=== PATIENT | female | born 1945 | race Caucasian/White ===

== ENCOUNTER 2017-07-26 10:48 | Emergency (ER) | payer MEDICARE, OTHER ==
--- NOTE | 2017-07-26 11:10 | ERPHSYRPT ---
- History of Present Illness Time Seen by Provider: 07/26/17 11:05 Source: patient Exam Limitations: no limitations Patient Subjective Stated Complaint: pt reports she fell out of bed onto left shoulder last night-reports pain with movement Triage Nursing Assessment: pt pink warm and dry-denies other injury-radial pulse regualr and strong-sore rom reported Physician History: The patient is a 71-year-old female complaining that she accidentally rolled out of bed last night onto her left shoulder causing severe bruising and pain. Yesterday she had some teeth pulled and was tired after the procedure. She took only Tylenol for pain medicine. She did not lose consciousness or hit her head when she rolled out of bed. She is right-handed. Her past medical history is significant for gout, A-fib, stroke, and hypertension. Occurred: yesterday Reason for Fall: lost balance, fell from height Injuries/Pain Location: upper extremity (left shoulder) Loss of Consciousness: no loss of consciousness Quality: sharpness Severity of Pain-Max: moderate Severity of Pain-Current: moderate Modifying Factors: Improves With: nothing Associated Symptoms (Fall): extremity injury Allergies/Adverse Reactions: No Known Drug Allergies Allergy (Unverified 07/26/17 11:00) Home Medications: Allopurinol [Allopurinol] 100 mg PO DAILY 07/26/17 [History] Clopidogrel Bisulfate [Clopidogrel] 75 mg PO DAILY 07/26/17 [History] Lisinopril [Lisinopril] 10 mg PO DAILY 07/26/17 [History] Hx Tetanus, Diphtheria Vaccination/Date Given: No Hx Influenza Vaccination/Date Given: No Hx Pneumococcal Vaccination/Date Given: No Immunizations Up to Date: Yes - Review of Systems Constitutional: No Fever, No Chills Eyes: No Symptoms Ears, Nose, & Throat: No Symptoms Respiratory: No Cough, No Dyspnea Cardiac: No Chest Pain, No Edema, No Syncope Abdominal/Gastrointestinal: No Abdominal Pain, No Nausea, No Vomiting, No Diarrhea Genitourinary Symptoms: No Dysuria Musculoskeletal: Fall, Injury, Joint Pain, Joint Swelling Skin: No Rash Neurological: No Dizziness, No Focal Weakness, No Sensory Changes Psychological: No Symptoms Endocrine: No Symptoms Hematologic/Lymphatic: No Symptoms Immunological/Allergic: No Symptoms All Other Systems: Reviewed and Negative - Past Medical History Pertinent Past Medical History: Yes Neurological History: Stroke Cardiac History: Hypertension - Past Surgical History Past Surgical History: Yes - Social History Smoking Status: Never smoker Exposure to second hand smoke: No Drug Use: none Patient Lives Alone: No - Female History Hx Now: No - Nursing Vital Signs Nursing Vital Signs: Initial Vital Signs Temperature 98.7 F 07/26/17 11:03 Pulse Rate 110 H 07/26/17 11:03 Respiratory Rate 18 07/26/17 11:03 Blood Pressure 160/92 07/26/17 11:03 O2 Sat by Pulse Oximetry 97 07/26/17 11:03 Pain Scale Pain Intensity 8 - Ann-Marie Coma Score Best Eye Response ([place]): (4) open spontaneously Best Verbal Response ([place]): (5) oriented Best Motor Response ([place]): (6) obeys commands Ann-Marie Total: 15 - Physical Exam General Appearance: mild distress Head Injury: no evidence of injury Eye Exam: PERRL/EOMI ENT Exam: airway nml Neck Exam: normal inspection, No tenderness Respiratory/Chest Exam: normal breath sounds, No chest tenderness, No respiratory distress Cardiovascular Exam: normal heart sounds, regular rate/rhythm Gastrointestinal Exam: soft, No tenderness, No distention, No guarding, No ecchymosis Rectal Exam: not done Back Exam: normal inspection, No vertebral tenderness Extremity Exam: joint swelling, limited range of motion, evidence of injury, pain with movement, tenderness, other (significant bruising and decreased ROM of left shoulder. crepitance of left clavicle) Neurologic Exam: alert, oriented x 3, cooperative, sensation nml, No motor deficits Skin Exam: normal color, warm, dry SpO2 Interpretation: normal SpO2: 97 Oxygen Delivery: Room Air - Radiology Exams Left Clavicle X-ray Interpretation: Reviewed by , Teleradiologist Report, Displaced Fracture (distal shaft fracture with bayonet appostion/alignment per Dr Baker.) Left Shoulder X-ray Interpretation: Reviewed by , Teleradiologist Report, Displaced Fracture (distal clavicle fracture per Dr Baker.) Ordered Tests: Active Orders 24 hr Category Date Time Status CLAVICLE Stat Exams 07/26/17 11:13 Completed SHOULDER Stat Exams 07/26/17 11:13 Completed - Progress Progress: unchanged Counseled pt/family regarding: lab results, diagnosis, need for follow-up - Departure Time of Disposition: 12:04 Departure Disposition: Transfer ([facility] per Dr Hampton and Dr Moe.) Clinical Impression: Closed left clavicular fracture Condition: Stable Critical Care Time: No Referrals: JACQUIE HINOJOSA [Primary Care Provider] - Additional Instructions: You have a severe left clavicle fracture with a sharp piece of bone pushing against your skin. You will be transferred to [facility] ER for further evaluation and care. Pt to be transferred by private car. Pt's neighbor will provide transportation to [facility] to see Dr Hampton and Dr Moe.
--- NOTE | 2017-07-26 11:42 | XRAY ---
Indication: Pain following fall. Comparison: None 2 views of the left clavicle demonstrates distal clavicle shaft fracture with bayonet apposition/alignment and soft tissue swelling. No other bony, articular, or soft tissue abnormalities.
--- NOTE | 2017-07-26 11:47 | XRAY ---
Indication: Pain following fall. Comparison: None 3 views of the left shoulder demonstrates distal clavicle shaft fracture with bayonet apposition/alignment and soft tissue swelling. No other bony, articular, or soft tissue abnormalities.
[2017-07-26 13:13] VITALS: BP 131/88; PULSE 88; O2SAT 99
== END 2017-07-26 13:09 | disposition short-term general hospital (02) ==
LOC: ED 10:48
DX: S42.032A Displaced fracture of lateral end of left clavicle, initial encounter for closed fracture (principal); Z79.899 Other long term (current) drug therapy; W06.XXXA Fall from bed, initial encounter
CPT/HCPCS: 73000; 73030; 99284; 99285; L0120

== ENCOUNTER 2018-03-08 16:18 | Observation (INO) | payer MEDICARE, OTHER ==
--- NOTE | 2018-03-08 16:52 | ERPHSYRPT ---
- History of Present Illness Time Seen by Provider: 03/08/18 16:46 Source: patient Exam Limitations: no limitations Patient Subjective Stated Complaint: PT states "About two hours ago I think I had a TIA. I couldn't speak, my face started to droop and I was drooling. I took an aspirin and about 20 minutes after that it got better." Triage Nursing Assessment: Pt alert and oriented X 3, skin pwd. PT ambulates with an upright steady gait, able to speak in clear full sentences. PT in no respiratory distress at this time, CSM X 4, equal strength bilat. 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 She states that yesterday she had some left-handed weakness then today the above symptoms. She feels like she has recovered fully she is not having any problems moving any of her extremities today she did state she felt a little weak in her left arm earlier. Past medical history includes CVA 21 hemorrhagic 1 thromboembolic, patient also with history of TIA also history of atrial fibrillation and high blood pressure patient's old chart shows a history of gout however patient disputes this Past surgical history includes a left carotid endarterectomy and left clavicle surgery. Social history patient denies tobacco alcohol or illicit drug use. 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: today (2 hours ago) Severity: moderate Modifying Factors: Improves With: other (patient took 325 mg aspirin shortly after symptoms began) Associated Symptoms: other (left facial droop slurry speech, left arm weakness all resolved), No nausea, No vomiting, No abdominal pain, No shortness of breath , No heartburn, No diaphoresis, No cough, No chills, No chest pain, No fever, No headaches, No loss of appetite, No malaise, No rash, No syncope, No seizure, No weakness Allergies/Adverse Reactions: No Known Drug Allergies Allergy (Verified 03/08/18 16:40) Home Medications: Clopidogrel Bisulfate [Clopidogrel] 75 mg PO DAILY 07/26/17 [History] Hx Tetanus, Diphtheria Vaccination/Date Given: No Hx Influenza Vaccination/Date Given: No Hx Pneumococcal Vaccination/Date Given: No Immunizations Up to Date: Yes - Review of Systems Constitutional: No Fever, No Chills Eyes: No Symptoms Ears, Nose, & Throat: No Symptoms Respiratory: No Cough, No Dyspnea Cardiac: No Chest Pain, No Edema, No Syncope Abdominal/Gastrointestinal: No Abdominal Pain, No Nausea, No Vomiting, No Diarrhea Genitourinary Symptoms: No Dysuria Musculoskeletal: Other (left upper extremity weakness), No Back Pain, No Neck Pain Skin: No Rash Neurological: Focal Weakness (left facial droop left arm weakness resolved), Speech Changes (slurry speech resolved), No Dizziness, No Gait Changes, No Headache, No Irritability, No Lethargy, No Paralysis, No Parasthesia, No Seizure , No Sensory Changes, No Tics, No Tremors, No Vertigo Psychological: No Symptoms Endocrine: No Symptoms All Other Systems: Reviewed and Negative - Past Medical History Pertinent Past Medical History: Yes Neurological History: Stroke, TIA Cardiac History: Arrhythmia, Hypertension Respiratory History: No Pertinent History Endocrine Medical History: No Pertinent History Musculoskeletal History: Fractures, Osteoporosis - Past Surgical History Past Surgical History: Yes Neuro Surgical History: Other (CVA 2: 1 hemorrhagic 1 thromboembolic, tia) Other Surgical History: carotid entorectomy left side - Social History Smoking Status: Former smoker Exposure to second hand smoke: No Drug Use: none Patient Lives Alone: No - Female History Hx Now: No - Nursing Vital Signs Nursing Vital Signs: Initial Vital Signs Temperature 98.0 F 03/08/18 16:30 Pulse Rate 99 H 03/08/18 16:30 Respiratory Rate 16 03/08/18 16:30 Blood Pressure 205/117 03/08/18 16:30 O2 Sat by Pulse Oximetry 94 L 03/08/18 16:30 Pain Scale Pain Intensity 0 - Physical Exam General Appearance: no apparent distress, alert, other (well-developed well- nourished white female, alert, oriented 3, pleasant and cooperative to examination) Eye Exam: PERRL/EOMI, eyes nml inspection, other (Fundi are unremarkable) Ears, Nose, Throat Exam: normal ENT inspection, TMs normal, pharynx normal, moist mucous membranes Neck Exam: normal inspection, non-tender, supple, full range of motion Respiratory Exam: normal breath sounds, lungs clear, No respiratory distress Cardiovascular Exam: regular rate/rhythm, normal heart sounds, normal peripheral pulses Gastrointestinal/Abdomen Exam: soft, normal bowel sounds, No tenderness, No mass Back Exam: normal inspection, normal range of motion, No CVA tenderness, No vertebral tenderness Extremity Exam: normal inspection, normal range of motion, pelvis stable Neurologic Exam: alert, oriented x 3, cooperative, vehicle and equipment cleaner II-XII nml as tested, normal mood/affect, nml cerebellar function, nml station & gait, sensation nml, other (patient is alert, oriented 3, cranial nerves II though XII intact, speech normal, no facial droop, no tongue deviation, sales enablement specialist equal and symmetrical 5/5, normal finger to nose, no pronator drift, full range of motion all extremities, sensation intact to all extremities, GCS equals 15), No motor deficits, No sensory deficit, No disoriented, No confusion Skin Exam: normal color, warm, dry, No rash SpO2 Interpretation: normal (94%) SpO2: 94 Oxygen Delivery: Room Air - Course Nursing assessment & vital signs reviewed: Yes EKG Interpreted by Me: RATE (78 bpm), NORMAL AXIS, Other (EKG: Sinus Arrhythmia , 78 bpm, normal axis, no acute ST or T wave changes noted.) - CT Exams Head CT Interpretation: Discussed w/radiologist (head CT: Impression: Nonacute senile brain.) Ordered Tests: Active Orders 24 hr Category Date Time Status Accucheck STAT Care 03/08/18 16:45 Active Ingredient Specialist STAT Care 03/08/18 16:45 Active EKG-ER Only STAT Care 03/08/18 16:45 Active IV Insertion STAT Care 03/08/18 16:45 Active Pulse Oximetry (ED) STAT Care 03/08/18 16:45 Active HEAD WITHOUT CONTRAST [CT] Stat Exams 03/08/18 16:45 Completed CBC W DIFF Stat Lab 03/08/18 17:45 Completed CMP Stat Lab 03/08/18 17:45 Completed PROTIME WITH INR Stat Lab 03/08/18 17:45 Completed PTT Stat Lab 03/08/18 17:45 Completed Lab/Rad Data: Laboratory Result Diagrams 03/08/18 17:45 03/08/18 17:45 Laboratory Results 03/08/18 03/08/18 03/08/18 Range/Units 17:45 17:45 17:45 WBC 5.9 (4.0-10.5) K/mm3 RBC 4.50 (4.1-5.4) M/mm3 Hgb 14.2 (12.0-16.0) gm/dl Hct 42.5 (35-47) % MCV 94.4 (78-100) fl MCH 31.6 (26-32) pg MCHC 33.4 (32-36) g/dl RDW 14.4 H (11.5-14.0) % Plt Count 210 (150-450) K/mm3 MPV 9.7 H (6-9.5) fl Gran % 65.7 (36.0-66.0) % Eos # (Auto) 0.05 (0-0.5) Absolute Lymphs (auto) 1.42 (1.0-4.6) Absolute Monos (auto) 0.53 (0.0-1.3) Lymphocytes % 24.2 (24.0-44.0) % Monocytes % 9.0 (0.0-12.0) % Eosinophils % 0.9 (0.00-5.0) % Basophils % 0.2 (0.0-0.4) % Absolute Granulocytes 3.86 (1.4-6.9) Basophils # 0.01 (0-0.4) PT 10.8 (9.95-12.35) SECONDS INR 0.93 (0.8-3.0) APTT 30.7 (25.3-37.0) SECONDS Sodium 136 L (137-145) mmol/L Potassium 4.1 (3.5-5.1) mmol/L Chloride 101 (98-107) mmol/L Carbon Dioxide 26 (22-30) mmol/L Anion Gap 13.4 (5-15) MEQ/L BUN 20 H (7-17) mg/dL Creatinine 1.28 H (0.52-1.04) mg/dL Estimated GFR 43.6 ML/MIN Glucose 91 (74-106) mg/dL Calcium 9.7 (8.4-10.2) mg/dL Total Bilirubin 1.10 (0.2-1.3) mg/dL AST 24 (14-36) U/L ALT 9 (0-35) U/L Alkaline Phosphatase 143 H (38-126) U/L Serum Total Protein 8.5 H (6.3-8.2) g/dL Albumin 4.4 (3.5-5.0) g/dL - Progress Progress: improved Progress Note: 03/08/18 17:14 72-year-old white female with history of hemorrhagic CVA and history of thromboembolic CVA as well as TIA. Arrives with complaint of left facial droop slurried speech and drooling and left-sided arm weakness symptoms approximately 2 hours prior to arrival lasted about 10-15 minutes resolved after taking aspirin 325 mg orally. Patient now with normal neurologic examination I've discussed the patient's case with Dr. Du it is not felt that to a neurology consult needs to be done in the emergency room patient has a normal neurologic examination we'll plan to place patient on observation telemetry neuro checks. Patient has already taken aspirin. Will await patient's labs. Anticipate placement on observation to telemetry with every 4 hours neuro checks.. 03/08/18 18:23 Patient continues to do well. Will place patient on observation telemetry with every 4 hours neuro checks. Diagnosis left-sided facial droop resolved. TIA versus CVA. - Departure Time of Disposition: 18:23 Departure Disposition: Observation Clinical Impression: left-sided facial droop Resolved, TIA versus CVA Condition: Fair Critical Care Time: No Referrals: LISETTE SIM [Primary Care Provider] -
--- NOTE | 2018-03-08 17:08 | XRAY ---
Indication: Slurred speech. Drooling. Possible stroke. Multiple contiguous axial images obtained through the head without contrast. Comparison: None Age-appropriate global atrophy and mild periventricular degenerative micro-ischemia bilaterally. No acute intracranial hemorrhage, abnormal extra-axial fluid collection, or mass effect. Fourth ventricle is midline without hydrocephalus. Bony calvarium intact. Visualized paranasal sinuses and mastoid air cells are clear. Impression: Nonacute senile brain. CT DI 70.38
[2018-03-08 17:48] LABS: BASOPHIL % 0.2 % (0.0-0.4); Basophil (Absolute #) 0.01 (0-0.4); Eosinophil % 0.9 % (0.00-5.0); Eosinophil (Absolute #) 0.05 (0-0.5); Granulocyte Absolute (ANC) 3.86 (1.4-6.9); Granulocytes % 65.7 % (36.0-66.0); Hematocrit 42.5 % (35-47); Hemoglobin 14.2 gm/dl (12.0-16.0); Lymphocyte (Absolute #) 1.42 (1.0-4.6); Lymphocytes % 24.2 % (24.0-44.0); Mean Cell Volume 94.4 fl (78-100); Mean Corpuscular Hemoglobin 31.6 pg (26-32); Mean Corpuscular Hgb Concent. 33.4 g/dl (32-36); Mean Platelet Volume 9.7 fl (6-9.5); Monocyte (Absolute #) 0.53 (0.0-1.3); Platelet Count 210 K/mm3 (150-450); Red Cell Distribution Width 14.4 % (11.5-14.0); White Blood Count 5.9 K/mm3 (4.0-10.5)
[2018-03-08 18:10] LABS: INR 0.93 (0.8-3.0)
[2018-03-08 18:13] LABS: PTT 30.7 SECONDS (25.3-37.0)
[2018-03-08 18:14] LABS: ALBUMIN 4.4 g/dL (3.5-5.0); ANION GAP 13.4 MEQ/L (5-15); BILIRUBIN,TOTAL 1.1 mg/dL (0.2-1.3); Calcium 9.7 mg/dL (8.4-10.2); Creatinine 1 1.28 mg/dL (0.52-1.04); Potassium 4.1 mmol/L (3.5-5.1); Total Protein 8.5 g/dL (6.3-8.2)
[2018-03-08] MEDS: PLAVIX 75 MG Tablet PO SCH (22:07)
[2018-03-09 05:44] LABS: BASOPHIL % 0.1 % (0.0-0.4); Basophil (Absolute #) 0.01 (0-0.4); Eosinophil % 0.9 % (0.00-5.0); Eosinophil (Absolute #) 0.08 (0-0.5); Granulocyte Absolute (ANC) 7.07 (1.4-6.9); Granulocytes % 83.4 % (36.0-66.0); Hemoglobin 13.2 gm/dl (12.0-16.0); Lymphocyte (Absolute #) 0.75 (1.0-4.6); Lymphocytes % 8.8 % (24.0-44.0); Mean Cell Volume 94.8 fl (78-100); Mean Corpuscular Hemoglobin 31.3 pg (26-32); Mean Platelet Volume 10.4 fl (6-9.5); Monocyte (Absolute #) 0.58 (0.0-1.3); Monocytes % 6.8 % (0.0-12.0); Platelet Count 205 K/mm3 (150-450); Red Blood Count 4.22 M/mm3 (4.1-5.4); Red Cell Distribution Width 14.7 % (11.5-14.0); White Blood Count 8.5 K/mm3 (4.0-10.5)
[2018-03-09 06:16] LABS: ALBUMIN 3.7 g/dL (3.5-5.0); ANION GAP 10.8 MEQ/L (5-15); BILIRUBIN,TOTAL 0.8 mg/dL (0.2-1.3); Calcium 9.4 mg/dL (8.4-10.2); Creatinine 1 1.27 mg/dL (0.52-1.04); Total Protein 7.4 g/dL (6.3-8.2)
--- NOTE | 2018-03-09 08:57 | XRAY ---
Indication: Slurred speech. Left-sided weakness. Multiple contiguous axial images obtained through the head without contrast. Comparison: One day earlier. Stable global atrophy and mild periventricular degenerative micro-ischemia. There is now subtle cortical/subcortical hypoattenuation in the right mid parietal lobe favoring evolving acute ischemia. No acute hemorrhage, mass effect, or hydrocephalus. Bony calvarium intact. Visualized paranasal sinuses and mastoid air cells are clear. Impression: 1. New evolving right parietal lobe acute ischemia without hemorrhage/mass effect. MRI exam is pending. 2. Stable atrophy and degenerative micro-ischemia. CTDI 70.80
--- NOTE | 2018-03-09 09:09 | XRAY ---
Indication: TIA symptoms. Left-sided weakness. History bleed March 2015. Sagittal, coronal, and axial MRI brain was performed without contrast using T1, T2, FLAIR, diffusion, and ADC sequences. Comparison: None Age-appropriate global atrophy and mild periventricular degenerative micro-ischemia signal bilaterally. Additional punctate degenerative micro-ischemia signal in the left subhash. Small focus of encephalomalacia in the left mid parietal and posterior right temporal lobes with surrounding gliosis from old injury/insult. Diffusion images demonstrates restricted signal centered around the right central sulcus favoring acute ischemia. No acute intracranial hemorrhage, mass effect, or hydrocephalus. 7/8 cranial nerve complex bilaterally symmetric. Normal flow-void signal within the major intracerebral circulation. Normal appearing craniocervical junction and sella turcica. Paranasal sinuses are clear. Impression: 1. Acute ischemia centered around the right central sulcus. No acute hemorrhage or mass effect. 2. Small focus of encephalomalacia and gliosis in the left parietal and right posterior temporal lobes from old injury/insult. 3. Aging brain including global atrophy and degenerative micro-ischemia.
--- NOTE | 2018-03-09 09:29 | PCM.HP ---
History of Present Illness - Chief Complaint Chief Complaint: TIA vs CVA History of Present Illness: is a 72 year old female who presented with acute onset of slurred speech and facial droop, she took an 81mg aspirin at home and her symptoms resolved within 5 minutes, however her insisted she come for evaluation. 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 Since that time she has been on lipitor 80mg daily and plavix 75mg daily. She has no history of GI bleed or problems with the plavix, has never been on aspirin and plavix concurrently. she had another brief episode of dysarthria and facial droop this morning which was witness by staff but rapidly dissipated, she is alert, oriented and has no complaints of visual changes, no headache, no difficulty with speech, no motor weakness or paresthesias at this time. - Review of Systems Constitutional: No Fever, No Chills Eyes: No Symptoms Respiratory: No Cough, No Short Of Breath Cardiac: No Chest Pain, No Edema, No Syncope Abdominal/Gastrointestinal: No Abdominal Pain, No Nausea, No Vomiting, No Diarrhea Musculoskeletal: No Back Pain, No Neck Pain Neurological: Speech Changes, No Focal Weakness, No Paralysis, No Seizure, No Vertigo Psychological: No Symptoms All Other Systems: Reviewed and Negative Medications & Allergies Home Medications: Home Medication List Clopidogrel Bisulfate [Clopidogrel] 75 mg PO DAILY 07/26/17 [History Confirmed 03/08/18] Allergies/Adverse Reactions: Allergies Allergy/AdvReac Type Severity Reaction Status Date / Time No Known Drug Allergies Allergy Verified 03/08/18 16:40 - Past Medical History Past Medical History: Yes Neurological History: Stroke, TIA ENT History: Cataracts Cardiac History: Arrhythmia Respiratory History: No Pertinent History Endocrine Medical History: No Pertinent History Musculoskelatal History: No Pertinent History GI Medical History: No Pertinent History History: No Pertinent History Pyscho-Social History: No Pertinent History Reproductive Disorders: No Pertinent History - Female History Are you now?: No - Past Surgical History Past Surgical History: Yes Neuro Surgical History: Other Cardiac History: Other Respiratory Surgery: No Pertinent History GI Surgical History: No Pertinent History Genitourinary Surgical Hx: No Pertinent History Musculskeletal Surgical Hx: No Pertinent History Female Surgical History: No Pertinent History Other Surgical History: carotid entorectomy left side-1987. rt side collar bone metal plate-2017 - Social History Smoking Status: Former smoker Exposure to second hand smoke: No Alcohol: Rarely Drug Use: none - Physical Exam Vital Signs: Vital Signs - 24 hr Temp Pulse Resp BP Pulse Ox 03/09/18 08:00 16 03/09/18 07:27 93 L 03/09/18 07:00 97.8 F 112 H 20 123/59 96 03/09/18 04:00 98.1 F 106 H 16 127/60 95 03/09/18 00:00 98.0 F 75 16 136/63 95 03/08/18 19:54 97.6 F 79 16 184/81 96 03/08/18 19:43 97 03/08/18 18:39 97 03/08/18 18:24 94 L 03/08/18 18:13 98.0 F 80 16 179/95 98 03/08/18 17:27 94 L 03/08/18 16:30 98.0 F 99 H 16 205/117 94 L General Appearance: no apparent distress, alert Neurologic Exam: alert, oriented x 3, cooperative, normal mood/affect, nml cerebellar function, nml station & gait, sensation nml, No motor deficits, No sensory deficit Eye Exam: PERRL/EOMI, eyes nml inspection Ears, Nose, Throat Exam: normal ENT inspection, TMs normal, pharynx normal, moist mucous membranes Neck Exam: normal inspection, non-tender, supple, full range of motion Respiratory Exam: normal breath sounds, lungs clear, No respiratory distress Cardiovascular Exam: regular rate/rhythm, normal heart sounds, normal peripheral pulses Gastrointestinal/Abdomen Exam: soft, normal bowel sounds, No tenderness, No mass Extremity Exam: normal inspection, normal range of motion, pelvis stable Skin Exam: normal color, warm, dry, No rash Results - Labs Lab/Micro Results: Accuchecks Accucheck Value: 85 Lab Results-Last 24 Hours 03/08/18 03/08/18 03/08/18 Range/Units 17:45 17:45 17:45 WBC 5.9 (4.0-10.5) K/mm3 RBC 4.50 (4.1-5.4) M/mm3 Hgb 14.2 (12.0-16.0) gm/dl Hct 42.5 (35-47) % MCV 94.4 (78-100) fl MCH 31.6 (26-32) pg MCHC 33.4 (32-36) g/dl RDW 14.4 H (11.5-14.0) % Plt Count 210 (150-450) K/mm3 MPV 9.7 H (6-9.5) fl Gran % 65.7 (36.0-66.0) % Eos # (Auto) 0.05 (0-0.5) Absolute Lymphs (auto) 1.42 (1.0-4.6) Absolute Monos (auto) 0.53 (0.0-1.3) Lymphocytes % 24.2 (24.0-44.0) % Monocytes % 9.0 (0.0-12.0) % Eosinophils % 0.9 (0.00-5.0) % Basophils % 0.2 (0.0-0.4) % Absolute Granulocytes 3.86 (1.4-6.9) Basophils # 0.01 (0-0.4) PT 10.8 (9.95-12.35) SECONDS INR 0.93 (0.8-3.0) APTT 30.7 (25.3-37.0) SECONDS Sodium 136 L (137-145) mmol/L Potassium 4.1 (3.5-5.1) mmol/L Chloride 101 (98-107) mmol/L Carbon Dioxide 26 (22-30) mmol/L Anion Gap 13.4 (5-15) MEQ/L BUN 20 H (7-17) mg/dL Creatinine 1.28 H (0.52-1.04) mg/dL Estimated GFR 43.6 ML/MIN Glucose 91 (74-106) mg/dL Calcium 9.7 (8.4-10.2) mg/dL Total Bilirubin 1.10 (0.2-1.3) mg/dL AST 24 (14-36) U/L ALT 9 (0-35) U/L Alkaline Phosphatase 143 H (38-126) U/L Serum Total Protein 8.5 H (6.3-8.2) g/dL Albumin 4.4 (3.5-5.0) g/dL 03/09/18 03/09/18 Range/Units 05:05 05:05 WBC 8.5 (4.0-10.5) K/mm3 RBC 4.22 (4.1-5.4) M/mm3 Hgb 13.2 (12.0-16.0) gm/dl Hct 40.0 (35-47) % MCV 94.8 (78-100) fl MCH 31.3 (26-32) pg MCHC 33.0 (32-36) g/dl RDW 14.7 H (11.5-14.0) % Plt Count 205 (150-450) K/mm3 MPV 10.4 H (6-9.5) fl Gran % 83.4 H (36.0-66.0) % Eos # (Auto) 0.08 (0-0.5) Absolute Lymphs (auto) 0.75 L (1.0-4.6) Absolute Monos (auto) 0.58 (0.0-1.3) Lymphocytes % 8.8 L (24.0-44.0) % Monocytes % 6.8 (0.0-12.0) % Eosinophils % 0.9 (0.00-5.0) % Basophils % 0.1 (0.0-0.4) % Absolute Granulocytes 7.07 H (1.4-6.9) Basophils # 0.01 (0-0.4) PT (9.95-12.35) SECONDS INR (0.8-3.0) APTT (25.3-37.0) SECONDS Sodium 138 (137-145) mmol/L Potassium 4.0 (3.5-5.1) mmol/L Chloride 107 (98-107) mmol/L Carbon Dioxide 24 (22-30) mmol/L Anion Gap 10.8 (5-15) MEQ/L BUN 23 H (7-17) mg/dL Creatinine 1.27 H (0.52-1.04) mg/dL Estimated GFR 44.0 ML/MIN Glucose 97 (74-106) mg/dL Calcium 9.4 (8.4-10.2) mg/dL Total Bilirubin 0.80 (0.2-1.3) mg/dL AST 18 (14-36) U/L ALT 10 (0-35) U/L Alkaline Phosphatase 119 (38-126) U/L Serum Total Protein 7.4 (6.3-8.2) g/dL Albumin 3.7 (3.5-5.0) g/dL Accuchecks Accucheck Value: 85 - Radiology Impressions Radiology Exams & Impressions: Radiology Procedures Category Date Time Status HEAD WITHOUT CONTRAST [CT] Stat Exams 03/08/18 16:45 Completed HEAD WITHOUT CONTRAST [CT] Urgent Exams 03/09/18 07:11 Completed MRI BRAIN W/O CONTRAST [MRI] Stat Exams 03/09/18 07:26 Completed Assessment/Plan (1) TIA (transient ischemic attack) Current Visit: Yes Status: Acute Assessment & Plan: patient with acute ischemia in right central sulcus which seems slightly unexpected with her speech being affected. symptoms resolved at this time. hx of CEA, will get carotid doppler and echo. EKG in ER shows sinus arrythmia but no acute changes. continue plavix, consider addition of aspirin therapy with plavix, will await teleneurology recommendation. continue lisinopril and high intensity statin therapy with atorvastatin 80mg at this time. Code(s): G45.9 - TRANSIENT CEREBRAL ISCHEMIC ATTACK, UNSPECIFIED
[2018-03-09] MEDS: Zestril 10 MG PO SCH ×2 (11:14→11:16)
--- NOTE | 2018-03-09 12:15 | XRAY ---
Indication: TIA. Two-dimensional sonogram and color Doppler imaging of the carotid arteries in the neck performed. Comparison: None Examination of the right carotid circulation demonstrates minimal eccentric focal calcified plaquing in the common carotid artery. Greater mild/moderate scattered calcified plaquing seen at the level of the bulb extending into the origin of the external carotid artery and origin/proximal internal carotid artery. Focal soft plaque is seen in the distal internal carotid artery. PSV of the CCA is 86 cm/s. PSV of the ICA is 158 cm/s. ICA/CCA ratio is 1.8. Normal antegrade vertebral artery flow. Examination of the left carotid circulation demonstrates minimal eccentric focal calcified plaquing in the common carotid artery. Mild/moderate scattered calcified plaquing at the level of the bulb extending into the origin of the external carotid artery and origin/proximal internal carotid artery. PSV of the CCA is 114 cm/s. PSV of the ICA is 155 cm/s. ICA/CCA ratio is 1.4. Normal antegrade vertebral artery flow. Impression: Mild/moderate scattered arteriosclerotic plaquing bilaterally. Velocity measurements and ratios favor 50-69% stenosis bilaterally.
--- NOTE | 2018-03-09 17:25 | XRAY ---
Indication: CVA. Conventional contrast enhanced CTA neck was performed using 100 cc Isovue 370 contrast. Two-dimensional sagittal and coronal reformatted images obtained. Additional 3-dimensional reformatted images obtained using a separate workstation. Comparison: None Partially visualized aortic arch demonstrates mild calcifications with normal branching right brachiocephalic, left common carotid, and left subclavian arteries. Great vessels are negative for critical stenosis or obstruction. Normal branching right common carotid artery off the brachiocephalic. Mid common carotid artery demonstrates tiny focus eccentric calcified plaquing. At the level of the bulb, there is focal moderate calcified plaquing producing 70-80% stenosis. Remaining internal and external carotid arteries are normal in CTA appearance. Left common carotid artery appears widely patent. At the level of the bulb, there is mild/moderate scattered calcified plaquing producing 60-70 % stenosis. This slightly extends into the origin and proximal internal carotid artery as heterogeneous plaquing producing 50-60% stenosis. Remaining internal and external carotid arteries are normal in CTA appearance. Vertebral arteries branch off the subclavian. Minimal calcification of the origin of the right vertebral artery without critical stenosis or poststenotic dilatation. Left vertebral artery is larger in size and demonstrates minimal scattered calcified plaquing along its course without critical stenosis/obstruction. CTA [place] of [place] reported separately. Jugular veins are unremarkable. Visualized soft tissues demonstrates extensive bilateral pulmonary emphysema with scattered pleural parenchymal fibrosis/scarring. A few centimeter/subcentimeter cervical and submandibular lymph nodes bilaterally. No pathologic cervical or supraclavicular lymphadenopathy. Thyroid gland enhances homogeneously. Supra and infraglottic airway widely patent. Visualized cervical spine intact with mild/moderate C4-C7 degenerative disc space narrowing with opposing endplate sclerosis/spurring greatest at C4-C5 level. Also multilevel bilateral degenerative facet arthropathy. Minimal 1-2 mm C7 anterolisthesis on T1 also felt to be degenerative. Impression: 1. Right carotid artery demonstrates scattered calcified plaquing as detailed greatest at the level of the bulb where there is 70-80% stenosis. 2. Calcified and heterogeneous plaquing in the left carotid circulation as detailed. 60-70% stenosis at the level of the bulb and lesser 50-60% stenosis in the proximal internal carotid artery. 3. Vertebral circulation demonstrates dominant left vertebral artery with minimal scattered calcified plaquing. Right vertebral artery demonstrates minimal calcification at its origin. Otherwise no critical stenosis/obstruction. 4. Incidental extensive pulmonary emphysema and multilevel cervical degenerative spondylosis. CTDI 36.68
--- NOTE | 2018-03-09 17:30 | XRAY ---
Indication: CVA. Conventional contrast enhanced CTA brain was performed using 100 cc Isovue 370 contrast. Two-dimensional sagittal and coronal reformatted images obtained. Comparison: None CTA neck reported separately. Distal internal carotid arteries demonstrates very minimal scattered calcified plaquing bilaterally. Parasellar segments including carotid terminus demonstrates greater mild scattered calcified plaquing bilaterally. No critical stenosis, obstruction, or AV malformation. Normal CTA appearance to the anterior cerebral, anterior communicating, middle cerebral, and both posterior communicating arteries. More distal anterior and middle cerebral branches unremarkable. Posterior circulation demonstrates normal course and caliber to the basilar artery with normal branching posterior cerebral and anterior inferior cerebral arteries bilaterally. Venous system negative for thrombus or filling defect. There is no abnormal enhancing intra-or extra-axial mass. Impression: 1. Very minimal scattered calcified plaquing in the distal internal carotid arteries bilaterally without critical stenosis/obstruction. 2. Otherwise negative CTA [place] of [place]. 3. Venous drainage unremarkable. 4. No enhancing intra /extra axial mass. CTDI 36.68
[2018-03-09] MEDS: PLAVIX 75 MG Tablet PO SCH (21:38)
[2018-03-09] MEDS ORDERED: Ecotrin 325 MG PO SCH (22:00)
[2018-03-09] MEDS ORDERED: NON-FORMULARY ITEM (Atorvastatin Calcium [Lipitor] 80 MG) PO SCH (22:00)
[2018-03-09] MEDS ORDERED: ZOCOR 20MG PO SCH (22:00)
[2018-03-10 05:43] LABS: BASOPHIL % 0.5 % (0.0-0.4); Basophil (Absolute #) 0.02 (0-0.4); Eosinophil % 3.3 % (0.00-5.0); Eosinophil (Absolute #) 0.14 (0-0.5); Granulocyte Absolute (ANC) 2.43 (1.4-6.9); Granulocytes % 57.5 % (36.0-66.0); Hematocrit 37.8 % (35-47); Hemoglobin 12.6 gm/dl (12.0-16.0); Lymphocytes % 26.1 % (24.0-44.0); Mean Cell Volume 95.5 fl (78-100); Mean Corpuscular Hemoglobin 31.8 pg (26-32); Mean Corpuscular Hgb Concent. 33.3 g/dl (32-36); Mean Platelet Volume 9.8 fl (6-9.5); Monocyte (Absolute #) 0.53 (0.0-1.3); Monocytes % 12.6 % (0.0-12.0); Platelet Count 186 K/mm3 (150-450); Red Blood Count 3.96 M/mm3 (4.1-5.4); Red Cell Distribution Width 14.7 % (11.5-14.0); White Blood Count 4.2 K/mm3 (4.0-10.5)
[2018-03-10 06:26] LABS: ALBUMIN 3.4 g/dL (3.5-5.0); ANION GAP 11.9 MEQ/L (5-15); BILIRUBIN,TOTAL 0.5 mg/dL (0.2-1.3); Calcium 9.1 mg/dL (8.4-10.2); Creatinine 1 1.16 mg/dL (0.52-1.04); Potassium 4.2 mmol/L (3.5-5.1); Total Protein 6.6 g/dL (6.3-8.2)
[2018-03-10 06:32] LABS: Risk Ratio 2.9
[2018-03-10 07:07] VITALS: BP 114/57; PULSE 74; O2SAT 92
--- NOTE | 2018-03-10 08:36 | PCM.DS ---
Discharge Summary Date of Admission: 03/08/18 18:33 Admitting Physician: PABLO HERNANDEZ Consults: Consults on Case 03/09/18 07:42 Consult Tele-Health [Tele-Health Consult] ROUTINE Primary Care Provider: LISETTE SIM Allergies Allergies No Known Drug Allergies Allergy (Verified 03/08/18 16:40) Hospital Summary - Hospital Course Hospital Course: patient was admitted with difficulty with speech, slurred speech and facial droop but no other motor or sensory deficits. has had two of these episodes which resolved within minutes. she has had no further episodes during hospialization. notably has a history of hemorrhagia and ischemic CVA 2 years ago in [place], was seen by teleneurology. no critical stenosis on cta head/ neck, advised to add aspirin to plavix she was already taking. echo showed no cardiac thrombus etc, had sinus arrythmia on ekg and no rhythm abnormalities on telemetry during her stay. - Vitals & Intake/Output Vital Signs: Vital Signs Temperature 97.8 F 03/10/18 07:06 Pulse Rate 74 03/10/18 07:06 Respiratory Rate 17 03/10/18 07:06 Blood Pressure 114/57 03/10/18 07:06 O2 Sat by Pulse Oximetry 92 L 03/10/18 07:06 Intake & Output: Intake & Output 03/07/18 03/08/18 03/09/18 03/10/18 11:59 11:59 11:59 11:59 Intake Total 600 840 Output Total 750 900 Balance -150 -60 Weight 50.7 kg 50.8 kg - Lab Result Diagrams: 03/10/18 05:20 03/10/18 05:20 Lab Results-Last 24 Hrs: Lab Results-Last 24 Hours 03/09/18 03/09/18 03/10/18 Range/Units 05:05 05:05 05:20 WBC 4.2 (4.0-10.5) K/mm3 RBC 3.96 L (4.1-5.4) M/mm3 Hgb 12.6 (12.0-16.0) gm/dl Hct 37.8 (35-47) % MCV 95.5 (78-100) fl MCH 31.8 (26-32) pg MCHC 33.3 (32-36) g/dl RDW 14.7 H (11.5-14.0) % Plt Count 186 (150-450) K/mm3 MPV 9.8 H (6-9.5) fl Gran % 57.5 (36.0-66.0) % Eos # (Auto) 0.14 (0-0.5) Absolute Lymphs (auto) 1.10 (1.0-4.6) Absolute Monos (auto) 0.53 (0.0-1.3) Lymphocytes % 26.1 (24.0-44.0) % Monocytes % 12.6 H (0.0-12.0) % Eosinophils % 3.3 (0.00-5.0) % Basophils % 0.5 (0.0-0.4) % Absolute Granulocytes 2.43 (1.4-6.9) Basophils # 0.02 (0-0.4) Sodium (137-145) mmol/L Potassium (3.5-5.1) mmol/L Chloride (98-107) mmol/L Carbon Dioxide (22-30) mmol/L Anion Gap (5-15) MEQ/L BUN (7-17) mg/dL Creatinine (0.52-1.04) mg/dL Estimated GFR ML/MIN Glucose (74-106) mg/dL Hemoglobin A1c 5.04 (4.5-6.0) % Calcium (8.4-10.2) mg/dL Total Bilirubin (0.2-1.3) mg/dL AST (14-36) U/L ALT (0-35) U/L Alkaline Phosphatase (38-126) U/L Serum Total Protein (6.3-8.2) g/dL Albumin (3.5-5.0) g/dL Triglycerides (30-150) mg/dL Cholesterol (50-200) mg/dL LDL Cholesterol (30-100) mg/dL HDL Cholesterol (40-60) mg/dL Heart Disease Risk Ratio TSH 3rd Generation 1.570 (0.47-4.68) mIU/L 03/10/18 03/10/18 Range/Units 05:20 05:20 WBC (4.0-10.5) K/mm3 RBC (4.1-5.4) M/mm3 Hgb (12.0-16.0) gm/dl Hct (35-47) % MCV (78-100) fl MCH (26-32) pg MCHC (32-36) g/dl RDW (11.5-14.0) % Plt Count (150-450) K/mm3 MPV (6-9.5) fl Gran % (36.0-66.0) % Eos # (Auto) (0-0.5) Absolute Lymphs (auto) (1.0-4.6) Absolute Monos (auto) (0.0-1.3) Lymphocytes % (24.0-44.0) % Monocytes % (0.0-12.0) % Eosinophils % (0.00-5.0) % Basophils % (0.0-0.4) % Absolute Granulocytes (1.4-6.9) Basophils # (0-0.4) Sodium 136 L (137-145) mmol/L Potassium 4.2 (3.5-5.1) mmol/L Chloride 105 (98-107) mmol/L Carbon Dioxide 24 (22-30) mmol/L Anion Gap 11.9 (5-15) MEQ/L BUN 23 H (7-17) mg/dL Creatinine 1.16 H (0.52-1.04) mg/dL Estimated GFR 48.8 ML/MIN Glucose 88 (74-106) mg/dL Hemoglobin A1c (4.5-6.0) % Calcium 9.1 (8.4-10.2) mg/dL Total Bilirubin 0.50 (0.2-1.3) mg/dL AST 16 (14-36) U/L ALT 9 (0-35) U/L Alkaline Phosphatase 108 (38-126) U/L Serum Total Protein 6.6 (6.3-8.2) g/dL Albumin 3.4 L (3.5-5.0) g/dL Triglycerides 108 (30-150) mg/dL Cholesterol 158 (50-200) mg/dL LDL Cholesterol 77 (30-100) mg/dL HDL Cholesterol 55 (40-60) mg/dL Heart Disease Risk Ratio 2.9 TSH 3rd Generation (0.47-4.68) mIU/L - Radiology Exams Ordered Rad Exams-Entire Visit: Radiology Procedures Category Date Time Status CAROTID BILATERAL [US] Stat Exams 03/09/18 11:[address] ANGIOGRAPHY NECK [CT] Stat Exams 03/09/18 15:21 Completed CTA HEAD W AND/OR WO CONTRAST [CT] Stat Exams 03/09/18 15:20 Completed ECHO W/2D AND DOPPLER [US] Routine Exams 03/09/18 11:21 Taken HEAD WITHOUT CONTRAST [CT] Stat Exams 03/08/18 16:45 Completed HEAD WITHOUT CONTRAST [CT] Urgent Exams 03/09/18 07:11 Completed MRI BRAIN W/O CONTRAST [MRI] Stat Exams 03/09/18 07:26 Completed Discharge Exam General Appearance: no apparent distress, alert Neurologic Exam: alert, oriented x 3, cooperative, normal mood/affect, nml cerebellar function, sensation nml, No motor deficits Skin Exam: normal color, warm, dry Respiratory Exam: normal breath sounds, lungs clear, No respiratory distress Cardiovascular Exam: regular rate/rhythm, normal heart sounds Gastrointestinal/Abdomen Exam: soft, No tenderness, No mass Extremity Exam: normal inspection, normal range of motion Final Diagnosis/Problem List - Final Discharge Diagnosis/Problem (1) TIA (transient ischemic attack) Current Visit: Yes Status: Acute Assessment & Plan: discussed secondary prevention, add asa to plavix. continue lisinopril and lipitor 80mg. if has further episodes might be candidate for ambulatory telemetry monitoring but would be hesitant to anticoagulate her fully with history of hemorrhagic cva. will have her f/u with PCP and her blind lacer Dr Orr - Discharge Disposition: Home, Self-Care Condition: Good Prescriptions: New Aspirin EC 81 mg [Ecotrin 81 mg] 81 mg PO DAILY #30 tablet Continue Clopidogrel Bisulfate [Clopidogrel] 75 mg PO DAILY Calcium Carbonate/Vitamin D3 [Os-Celestine 500-Vit D3 200 Caplet] 500 mg PO BID Ergocalciferol (Vitamin D2) [Vitamin D2] 50,000 unit PO Q7D Lisinopril 10 mg [Zestril 10 MG] 10 mg PO BID Atorvastatin Calcium [Lipitor] 80 mg PO HS Follow up with: LISETTE SIM [Primary Care Provider] - 1 Week Ming Orr MD [CONSULTING PHYSICIAN] - 1 Week
--- NOTE | 2018-03-15 08:02 | ECHO ---
DATE OF PROCEDURE: 03/09/2018 CLINICAL INFORMATION: CVA. The M-mode 2D, and Doppler echocardiogram including color flow Doppler shows the left ventricle is normal in size at 3.8 cm. There is no apical thrombus present. The septal wall thickness is normal at 0.9 cm. The left ventricular posterior wall thickness is 1.1 cm. There is normal contractility of the left ventricle with the ejection fraction being calculated at 63%. The right ventricle is grossly normal. The left atrium is normal at 2.8 cm. The interatrial septum is intact. The right atrium is normal. The aortic valve opens well. There is mitral valve leaflet thickening. Prolapse of the anterior mitral valve leaflet cannot be ruled out. There is mild tricuspid regurgitation. The pulmonic valve is not well visualized. The aortic root is normal at 2.9 cm. There is no pericardial effusion present. IMPRESSION: 1) MILD TRICUSPID REGURGITATION. 2) THE MITRAL VALVE E TO A INFLOW VELOCITY RATIO IS DECREASED AT 0.7 CONSISTENT WITH IMPAIRED LEFT VENTRICULAR RELAXATION. NO CARDIAC THROMBUS IS NOTED.
== END 2018-03-10 10:00 | disposition home or self-care (01) ==
LOC: ED 16:18 → MED SURG 18:33
PROVIDERS: ADMIT Family Medicine; ATTEND Family Medicine
DX: Z86.73 Personal history of transient ischemic attack (TIA), and cerebral infarction without residual deficits (principal); I63.511 Cerebral infarction due to unspecified occlusion or stenosis of right middle cerebral artery; I10 Essential (primary) hypertension; R53.1 Weakness; Z79.899 Other long term (current) drug therapy; M81.0 Age-related osteoporosis without current pathological fracture
CPT/HCPCS: 36000; 36415; 70450; 70496; 70498; 70551; 80053; 80061; 82962; 83036; 83721; 84443; 85025; 85610; 85730; 93005; 93041; 93268; 93306; 93880; 94762; 99285; G0378; A9270-GY

== ENCOUNTER 2018-09-07 10:01 | Emergency (ER) | payer MEDICARE, OTHER ==
--- NOTE | 2018-09-07 10:44 | ERPHSYRPT ---
- History of Present Illness Time Seen by Provider: 09/07/18 10:31 Source: patient Exam Limitations: no limitations Patient Subjective Stated Complaint: fell last tuesday on slippery rocks while getting mail. states injured lef shoulder, elbow and arm and left hip and both knees. denies striking head. Triage Nursing Assessment: ambulated to room per self. skin w/d, color normal, resp nonlabored. has bruising noted to left shoulder, elbow, forearm. also bruising noted to left hip with tenderness. also bruising to bilat knees. no deformities noted at this time. Physician History: This 73-year-old white female with history of arrhythmia, high blood pressure, CVA x2 (1 hemorrhagic 1 metabolic) and TIA She arrives with complaints of pain in her left hip and thigh symptoms for 3 days. Patient states she fell while getting off a golf cart 3 days ago she states she struck her elbow on the left she has some bruising on her forearm on the left some bruising on her buttock she has pain in her left hip left thigh worse with movement. She denies hitting her head she denies loss of consciousness she denies neck pain she has no shortness of breath or chest pain. Past medical history includes arrhythmia, high blood pressure, CVA x2 (1 hemorrhagic 1 embolic) ,TIA, past surgical history includes carotid endarterectomy Timing/Duration: day(s) Severity: moderate (3 days ago) Modifying Factors: Improves With: nothing Associated Symptoms: other (pain left hip left thigh), No nausea, No vomiting, No abdominal pain, No shortness of breath, No heartburn, No diaphoresis, No cough, No chills, No chest pain, No fever, No headaches, No loss of appetite, No malaise, No rash, No syncope, No seizure, No weakness Allergies/Adverse Reactions: No Known Drug Allergies Allergy (Verified 09/07/18 10:22) Home Medications: Clopidogrel Bisulfate [Clopidogrel] 75 mg PO DAILY 07/26/17 [History] Atorvastatin Calcium [Lipitor] 80 mg PO HS 03/09/18 [History] Calcium Carbonate/Vitamin D3 [Os-Celestine 500-Vit D3 200 Caplet] 500 mg PO BID [History] Ergocalciferol (Vitamin D2) [Vitamin D2] 50,000 unit PO Q7D 03/09/18 [History] Hx Tetanus, Diphtheria Vaccination/Date Given: No Hx Influenza Vaccination/Date Given: No Hx Pneumococcal Vaccination/Date Given: No - Review of Systems Constitutional: No Symptoms Eyes: No Symptoms Ears, Nose, & Throat: No Symptoms Respiratory: No Cough, No Dyspnea Cardiac: No Chest Pain, No Edema, No Syncope Abdominal/Gastrointestinal: No Abdominal Pain, No Nausea, No Vomiting, No Diarrhea Musculoskeletal: Fall, Other (Pain left hip left thigh), No Back Pain Skin: Other (bruising bilateral knees left elbow left forearm) Neurological: No Dizziness, No Focal Weakness, No Sensory Changes Psychological: No Symptoms Endocrine: No Symptoms All Other Systems: Reviewed and Negative - Past Medical History Pertinent Past Medical History: Yes Neurological History: Stroke, TIA ENT History: Cataracts Cardiac History: Arrhythmia Respiratory History: No Pertinent History Endocrine Medical History: No Pertinent History Musculoskeletal History: No Pertinent History GI Medical History: No Pertinent History History: No Pertinent History Psycho-Social History: No Pertinent History Female Reproductive Disorders: No Pertinent History - Past Surgical History Past Surgical History: Yes Neuro Surgical History: Other Cardiac: Other Respiratory: No Pertinent History Gastrointestinal: No Pertinent History Genitourinary: No Pertinent History Musculoskeletal: No Pertinent History Female Surgical History: No Pertinent History Other Surgical History: carotid entorectomy left side-1987. rt side collar bone metal plate-2017 - Social History Smoking Status: Former smoker Exposure to second hand smoke: Yes Drug Use: none Patient Lives Alone: Yes - Female History Hx Now: No - Nursing Vital Signs Nursing Vital Signs: Initial Vital Signs Temperature 97.1 F 09/07/18 10:15 Pulse Rate 117 H 09/07/18 10:15 Respiratory Rate 16 09/07/18 10:15 Blood Pressure 202/89 09/07/18 10:15 O2 Sat by Pulse Oximetry 97 09/07/18 10:15 Pain Scale Pain Intensity 8 - Physical Exam General Appearance: mild distress, alert Eye Exam: PERRL/EOMI, eyes nml inspection Ears, Nose, Throat Exam: normal ENT inspection, TMs normal, pharynx normal, moist mucous membranes Neck Exam: normal inspection, non-tender, supple, full range of motion Respiratory Exam: normal breath sounds, lungs clear, No respiratory distress Cardiovascular Exam: regular rate/rhythm, normal heart sounds, normal peripheral pulses, capillary refill <2 sec Gastrointestinal/Abdomen Exam: soft, normal bowel sounds, No tenderness, No mass Back Exam: normal inspection, normal range of motion, No CVA tenderness, No vertebral tenderness Extremity Exam: other (pain with palpation left hip pain with movement left hip pain with movement left thigh, full range of motion both upper extremities. ) Neurologic Exam: alert, oriented x 3, cooperative, normal mood/affect, nml cerebellar function, nml station & gait, sensation nml, No motor deficits Skin Exam: other (eecchymosis left elbow, left forearm bilateral knees.) SpO2 Interpretation: normal (97%) SpO2: 97 - Course Nursing assessment & vital signs reviewed: Yes - Radiology Exams Left Femur X-ray Interpretation: Discussed w/ radiologist ( x-ray left femur colon impression nondisplaced sob O. fracture with minimal angulation. Elsewhere mild osteopenia and scattered vascular calcifications. No other bony, articular , or soft tissue abnormalities) Left Hip X-ray Interpretation: Discussed w/ radiologist (X-ray left hip including pelvis nondisplaced left subcapital fracture with minimal angulation. Elsewhere mild osteopenia and scattered vascular calcifications. No other bony, articular, or soft tissue abnormalities.) Ordered Tests: Active Orders 24 hr Category Date Time Status IV Insertion STAT Care 09/07/18 11:18 Active FEMUR Stat Exams 09/07/18 10:38 Completed HIP UNI (2V) INCL PEL IF DONE Stat Exams 09/07/18 10:38 Completed - Progress Progress: improved Progress Note: 09/07/18 11:13 Patient's x-ray left hip and femur remarkable for a nondisplaced subcapital fracture with minimal angulation. Patient did not want any pain medications earlier Will discuss patient's disposition with her expect transfer. - Departure Departure Disposition: Transfer Clinical Impression: Femur fracture, left Qualifiers: Encounter type: initial encounter Femur location: unspecified portion of femur Fracture type: closed Fracture morphology: unspecified fracture morphology Qualified Code(s): S72.92XA - Unspecified fracture of left femur, initial encounter for closed fracture Condition: Fair Critical Care Time: No Referrals: LISETTE SIM [Primary Care Provider] -
--- NOTE | 2018-09-07 11:08 | XRAY ---
Indication: Pain following fall 4 days ago. Comparison: None 2 views of the left femur demonstrates nondisplaced subcapital fracture with minimal angulation. Elsewhere mild osteopenia and scattered vascular calcifications. No other bony, articular, or soft tissue abnormalities.
--- NOTE | 2018-09-07 11:11 | XRAY ---
Indication: Pain following fall 4 days ago. Comparison: None AP pelvis and 2 views of the left hip demonstrates nondisplaced left subcapital fracture with minimal angulation. Elsewhere mild osteopenia and scattered vascular calcifications. No other bony, articular, or soft tissue abnormalities.
[2018-09-07 11:19] VITALS: PULSE 110
[2018-09-07 12:37] VITALS: BP 185/91
[2018-09-07 18:42] VITALS: O2SAT 97
== END 2018-09-07 12:39 | disposition short-term general hospital (02) ==
LOC: ED 10:01
DX: S72.92XA Unspecified fracture of left femur, initial encounter for closed fracture (principal); I10 Essential (primary) hypertension; S50.02XA Contusion of left elbow, initial encounter; W17.89XA Other fall from one level to another, initial encounter
CPT/HCPCS: 36000; 73502; 73552; 99284